=== PATIENT | male | born 1960 | race Caucasian/White ===

== ENCOUNTER 2017-10-07 16:57 | Emergency (ER) | payer MEDICARE ==
[~2017-10-07] VITALS: Ht 167.6 cm; Wt 54.4 kg
[2017-10-07] MEDS ORDERED: Oxybutynin Chlo15 MG PO ×2 (17:37→17:44)
[2017-10-07] MEDS ORDERED: GABA300 PO (17:38)
[2017-10-07] MEDS ORDERED: Prilosec Otc20 MG PO (17:38)
== END 2017-10-07 18:26 | disposition home or self-care (01) ==
LOC: ER 16:57
DX: Z76.0 Encounter for issue of repeat prescription (principal); F17.200 Nicotine dependence, unspecified, uncomplicated; Z88.8 Allergy status to other drugs, medicaments and biological substances; Z88.5 Allergy status to narcotic agent
CPT/HCPCS: 99283

== ENCOUNTER 2017-11-11 12:27 | Emergency (ER) | payer MEDICARE ==
[~2017-11-11] VITALS: Ht 170.2 cm; Wt 56.7 kg
[~2017-11-11 12:27] MED LIST: GABA300 PO; Oxybutynin Chlo15 MG PO; Prilosec Otc20 MG PO
[2017-11-11] MEDS ORDERED: Oxybutynin Chlo15 MG PO (13:13)
[2017-11-11 13:29] LABS: Source, Urine Catheter
[2017-11-11 13:32] LABS: Bilirubin, Urine Neg (Neg); Blood, Urine Neg (Neg); Glucose Qualitative, Urine Neg (Neg); Ketones, Urine Neg (Neg); Leukocyte Esterase, Urine 1+ (Neg); Nitrite, Urine Neg (Neg); Protein, Urine 1+ (Neg); Specific Gravity, Urine 1.015 (1.003-1.022); Urobilinogen, Urine 1+ (Normal)
[2017-11-11 13:46] LABS: Appearance, Urine Clear (Clear); Color, Urine Yellow (P-Yellow)
[2017-11-11 13:49] LABS: Bacteria Many /hpf; Red Blood Cells, Urine 0-2 /hpf (0-2); Squamous Epithelial Cells Rare /hpf (Few)
[2017-11-11] MEDS ORDERED: Keflex500 MG PO (14:11)
== END 2017-11-11 14:54 | disposition home or self-care (01) ==
LOC: ER 12:27
PROVIDERS: Nurse Practitioner Family
DX: Z76.0 Encounter for issue of repeat prescription (principal); N39.0 Urinary tract infection, site not specified; F17.200 Nicotine dependence, unspecified, uncomplicated; Z88.8 Allergy status to other drugs, medicaments and biological substances; Z88.5 Allergy status to narcotic agent; Z79.899 Other long term (current) drug therapy
CPT/HCPCS: 81001; 87077; 87086; 87186; 99283